=== PATIENT | male | born 1975 | race Native Hawaiian/Other Pacific Islander ===

== ENCOUNTER 2020-07-11 20:02 | Emergency (ER) | payer OTHER ==
[~2020-07-11] VITALS: Ht 170.2 cm; Wt 77.1 kg
[2020-07-11 20:45] VITALS: BP 144/86; TEMP 98.7
== END 2020-07-11 20:45 | disposition home or self-care (01) ==
LOC: ED 20:02
DX: R36.9 Urethral discharge, unspecified (principal)
CPT/HCPCS: 81000; 87088; 87490; 87590; 99283